=== PATIENT | male | born 1935 ===

== ENCOUNTER 2017-10-04 12:11 | Outpatient (CLI) | payer OTHER ==
[~2017-10-04] VITALS: Ht 180.3 cm; Wt 84.4 kg
== END 2017-10-04 12:30 | disposition home or self-care (01) ==
LOC: OFIC 805 12:11
DX: R09.81 Nasal congestion (principal); R04.0 Epistaxis

== ENCOUNTER 2017-10-14 10:50 | Outpatient (CLI) | payer OTHER ==
[~2017-10-14] VITALS: Ht 152.4 cm; Wt 84.4 kg
== END 2017-10-14 11:15 | disposition home or self-care (01) ==
LOC: OFIC 805 10:50
DX: R09.81 Nasal congestion (principal); R04.0 Epistaxis

== ENCOUNTER 2017-11-19 09:55 | Outpatient (CLI) | payer OTHER ==
[~2017-11-19] VITALS: Ht 152.4 cm; Wt 84.4 kg
== END 2017-11-19 10:15 | disposition home or self-care (01) ==
LOC: OFIC 805 09:55
DX: R09.81 Nasal congestion (principal); R04.0 Epistaxis